=== PATIENT | female | born 1945 | race Caucasian/White ===

== ENCOUNTER → 2018-03-03 | Outpatient (CLI) | payer OTHER ==
[~2018-03-03] MED LIST: ACIDOPHILUS CA1 EACH PO; ASCO500 PO; Aspir 8181 MG PO; CALCAVITD PO; CARV25 PO; DICY20 PO; DOCU100 PO; ETOD400 PO; FISH1000 PO; GLUCHON PO; GLUCOSA-CHOND-1 EACH PO; HYDACE5 PO; LOSA50 PO; MAGOXI400 PO; MULVITMIND PO; OMEP20ER PO; POLY17UD PO; POTASSIUM GLUC500 MG PO; RANI150; SENN187; Super B-50 Com1 EACH PO; VAGIFEM; VITAMIN B125000 MCG PO; VITAMIN D-32000 UNI1 PO; ZOCOR PO
[2018-03-03 15:38] LABS: Adenovirus F 40/41 Not Detected (NOT DETECT); Astrovirus Not Detected (NOT DETECT); Campylobacter Sp Not Detected (NOT DETECT); Cryptosporidium Not Detected (NOT DETECT); Cyclospora Cayetanensis Not Detected (NOT DETECT); E. Coli O157 Not Detected (NOT DETECT); Entamoeba Histolytica Not Detected (NOT DETECT); Enteroaggregative E. coli-EAEC Not Detected (NOT DETECT); Enteropathogenic E. coli-EPEC Not Detected (NOT DETECT); Enterotoxigenic E. coli-ETEC Not Detected (NOT DETECT); Giardia Lamblia Not Detected (NOT DETECT); Norovirus GI/GII Not Detected (NOT DETECT); Plesiomonas Shigelloides Not Detected (NOT DETECT); Rotavirus A Not Detected (NOT DETECT); Salmonella Sp Not Detected (NOT DETECT); Sapovirus Not Detected (NOT DETECT); Shiga Toxin-prod E. coli-STEC Not Detected (NOT DETECT); Shigella/Enteroin E. coli-EIEC Not Detected (NOT DETECT); Vibrio Cholerae Not Detected (NOT DETECT); Vibrio Sp Not Detected (NOT DETECT); Yersinia Enterocolitica Not Detected (NOT DETECT)
== END ==
LOC: LAB SHORT 09:30 → LAB 09:30
DX: R19.7 Diarrhea, unspecified (principal)
CPT/HCPCS: 87507

== ENCOUNTER 2018-04-19 10:16 | Day surgery (SDC) | payer OTHER ==
[~2018-04-19] VITALS: Ht 162.6 cm; Wt 86.9 kg
[2018-04-19] MEDS ORDERED: LOSA50 PO (11:14)
== END 2018-04-19 14:07 | disposition home or self-care (01) ==
LOC: ORSCSDS 10:16
PROVIDERS: Otolaryngology
PROC: 03BS0ZX Excision of Right Temporal Artery, Open Approach, Diagnostic (ICD-10-PCS; principal; 2018-04-19 11:45)
DX: M31.6 Other giant cell arteritis (principal); I10 Essential (primary) hypertension; E78.5 Hyperlipidemia, unspecified; Z79.899 Other long term (current) drug therapy; Z79.82 Long term (current) use of aspirin
CPT/HCPCS: 88305; 88313; J0171; J1100; J2250; J3010; J7120

== ENCOUNTER → 2018-07-27 | Outpatient (CLI) | payer OTHER | END | disposition home or self-care (01) | LOC: PLD 12:37 → LAB SHORT 12:37 | DX: C44.619 Basal cell carcinoma of skin of left upper limb, including shoulder (principal) | CPT/HCPCS: 88305 ==

== ENCOUNTER → 2018-12-21 | Outpatient (CLI) | payer OTHER | END | disposition home or self-care (01) | LOC: LAB 18:47 → LAB SHORT 18:47 | DX: R30.0 Dysuria (principal); R35.0 Frequency of micturition | CPT/HCPCS: 87086 ==

== ENCOUNTER → 2019-08-21 | Outpatient (CLI) | payer OTHER | END | disposition home or self-care (01) | LOC: LAB SHORT 15:30 → LAB 15:30 | DX: R30.0 Dysuria (principal); R35.0 Frequency of micturition | CPT/HCPCS: 87086 ==

== ENCOUNTER 2020-09-15 06:52 | Day surgery (SDC) | payer OTHER ==
--- NOTE | 2020-09-15 08:35 | NUR ---
PATIENT DISCHARGED TO HOME Patient States Post-Procedure ride home has been arranged. Discharged via wheelchair to private car for ride home.
== END 2020-09-15 22:55 | disposition home or self-care (01) ==
LOC: ORD 06:52 → CT 06:52 → ORD 07:30 → CT 08:00 → ORD 22:55
DX: I42.0 Dilated cardiomyopathy (principal); I25.10 Atherosclerotic heart disease of native coronary artery without angina pectoris; I11.0 Hypertensive heart disease with heart failure; I50.9 Heart failure, unspecified; R91.8 Other nonspecific abnormal finding of lung field; K22.4 Dyskinesia of esophagus; E78.5 Hyperlipidemia, unspecified; G47.33 Obstructive sleep apnea (adult) (pediatric); Z79.51 Long term (current) use of inhaled steroids; Z79.899 Other long term (current) drug therapy; Z88.0 Allergy status to penicillin; Z88.2 Allergy status to sulfonamides; Z88.8 Allergy status to other drugs, medicaments and biological substances
CPT/HCPCS: 71250; 75574; Q9967